=== PATIENT | male | born 1960 | race African-American/Black ===

== ENCOUNTER 2021-02-03 10:23 | Inpatient (IN) | payer OTHER ==
[2021-02-03 12:14] VITALS: BMI 25.7
[2021-02-03] MEDS ORDERED: LORazepam 1 MG TABLET PO PRN (14:43)
[2021-02-03] MEDS ORDERED: IBUPROFEN 400 MG TABLET (FP) PO PRN (14:43)
[2021-02-03] MEDS ORDERED: NICOTINE 10 MG CARTRIDGE (INHALER) IH PRN (14:43)
[2021-02-03] MEDS ORDERED: MAGNESIUM CITRATE 300 ML BOTTLE PO PRN (14:43)
[2021-02-03] MEDS ORDERED: ONDANSETRON *ODT* 4 MG TABLET SL PRN (14:43)
[2021-02-03] MEDS ORDERED: BISMUTH SUBSALICYLATE 524 MG/30 ML PO PRN (14:43)
[2021-02-03] MEDS ORDERED: MENTHOL/PHENOL 1 EACH UD MM PRN (14:43)
[2021-02-03] MEDS ORDERED: MAGNESIUM HYDROX 2400MG/30ML ORAL SUSPENSION 30 ML CUP PO PRN (14:43)
[2021-02-03] MEDS ORDERED: METHOCARBAMOL 500 MG TABLET PO PRN (14:43)
[2021-02-03] MEDS ORDERED: ACETAMINOPHEN 325 MG TABLET (FP) PO PRN ×2 (14:43)
[2021-02-03] MEDS ORDERED: MAG HYDROX/AL HYDROX/SIMETH 30 ML UNIT-DOSE CUP PO PRN (14:43)
[2021-02-03] MEDS: LORazepam 2 MG TABLET PO SCH ×2 (17:59→22:18)
[2021-02-03] MEDS: FAMOTIDINE 20 MG TABLET PO SCH (18:00)
[2021-02-03] MEDS: hydrOXYzine PAMOATE 25 MG CAPSULE (FP) PO SCH ×2 (18:01→22:19)
[2021-02-03] MEDS: PANTOPRAZOLE 40 MG TABLET PO SCH (18:01)
[2021-02-03] MEDS ORDERED: MELATONIN 5 MG TABLETS PO SCH (22:00)
[2021-02-03] MEDS: THIAMINE HCL 100 MG TABLET (FP) PO SCH (22:19)
[2021-02-04] MEDS: hydrOXYzine PAMOATE 25 MG CAPSULE (FP) PO SCH ×5 (05:26→22:17)
[2021-02-04] MEDS: LORazepam 2 MG TABLET PO SCH ×4 (05:26→22:17)
[2021-02-04 11:00] LABS: HEMATOCRIT 33.2 % (35.4-49); HEMOGLOBIN 11.1 GM/dL (11.7-16.9); MCHC 33.5 g/dl (32.0-35.9); MEAN CELL VOLUME 98.5 fl (80-96); MEAN PLT VOLUME 9.9 fl (7.5-11.1); PLATELET COUNT 194 10^3/uL (134-434); RBC 3.37 M/mm3 (4.00-5.60); RDW 24.6 % (11.9-15.9); WHITE BLOOD COUNT 4.2 K/mm3 (4.0-10.0)
[2021-02-04 11:05] LABS: ALBUMIN 3.8 g/dl (3.4-5.0); BLOOD UREA NITROGEN 13.8 mg/dL (7-18)
[2021-02-04 11:08] LABS: CREATININE 1.3 mg/dL (0.55-1.3)
[2021-02-04 11:10] LABS: BILIRUBIN,TOTAL 0.7 mg/dL (0.2-1); TOT PROT 8.8 g/dl (6.4-8.2)
[2021-02-04] MEDS: FAMOTIDINE 20 MG TABLET PO SCH (13:10)
[2021-02-04] MEDS: PANTOPRAZOLE 40 MG TABLET PO SCH (13:10)
[2021-02-04] MEDS: HYDROCHLOROTHIAZIDE 25 MG TABLET (FP) PO SCH (13:17)
[2021-02-04] MEDS: LISINOPRIL 20 MG TABLET PO SCH (13:17)
[2021-02-04] MEDS: THIAMINE HCL 100 MG TABLET (FP) PO SCH (22:17)
[2021-02-04] MEDS: MELATONIN 5 MG TABLETS PO SCH (22:17)
[2021-02-05] MEDS: hydrOXYzine PAMOATE 25 MG CAPSULE (FP) PO SCH ×5 (05:38→22:15)
[2021-02-05] MEDS: LORazepam 1 MG TABLET PO SCH ×4 (05:38→22:15)
[2021-02-05 10:15] LABS: INR 0.94 (0.83-1.09); PROTHROMBIN TIME (PATIENT) 11.5 SEC (9.7-13.0)
[2021-02-05 10:25] LABS: ALBUMIN 3.2 g/dl (3.4-5.0)
[2021-02-05 10:26] LABS: BLOOD UREA NITROGEN 14.2 mg/dL (7-18)
[2021-02-05 10:29] LABS: CREATININE 1.3 mg/dL (0.55-1.3)
[2021-02-05 10:30] LABS: BILIRUBIN,TOTAL 1.6 mg/dL (0.2-1); TOT PROT 7.6 g/dl (6.4-8.2)
[2021-02-05] MEDS: LISINOPRIL 20 MG TABLET PO SCH (10:34)
[2021-02-05] MEDS: PANTOPRAZOLE 40 MG TABLET PO SCH (10:34)
[2021-02-05] MEDS: HYDROCHLOROTHIAZIDE 25 MG TABLET (FP) PO SCH (10:34)
[2021-02-05] MEDS: FAMOTIDINE 20 MG TABLET PO SCH (10:35)
[2021-02-05] MEDS: MELATONIN 5 MG TABLETS PO SCH (22:15)
[2021-02-05] MEDS: THIAMINE HCL 100 MG TABLET (FP) PO SCH (22:15)
[2021-02-06] MEDS ORDERED: LORazepam 0.5 MG TABLET PO PRN
[2021-02-06] MEDS: LORazepam 0.5 MG TABLET PO SCH ×4 (05:38→22:45)
[2021-02-06] MEDS: hydrOXYzine PAMOATE 25 MG CAPSULE (FP) PO SCH ×5 (05:38→22:45)
[2021-02-06] MEDS: HYDROCHLOROTHIAZIDE 25 MG TABLET (FP) PO SCH (10:40)
[2021-02-06] MEDS: PANTOPRAZOLE 40 MG TABLET PO SCH (10:40)
[2021-02-06] MEDS: FAMOTIDINE 20 MG TABLET PO SCH (10:43)
[2021-02-06] MEDS: LISINOPRIL 20 MG TABLET PO SCH (11:38)
[2021-02-06 14:52] LABS: BLOOD UREA NITROGEN 16.3 mg/dL (7-18); CALCIUM 9.4 mg/dL (8.5-10.1)
[2021-02-06 14:56] LABS: CREATININE 1.2 mg/dL (0.55-1.3)
[2021-02-06] MEDS: MELATONIN 5 MG TABLETS PO SCH (22:45)
[2021-02-06] MEDS: THIAMINE HCL 100 MG TABLET (FP) PO SCH (22:45)
[2021-02-07] MEDS ORDERED: LORazepam 0.5 MG TABLET PO ONE (05:00)
[2021-02-07] MEDS: hydrOXYzine PAMOATE 25 MG CAPSULE (FP) PO SCH ×2 (05:37→12:16)
[2021-02-07 09:17] VITALS: BP 132/80; PULSE 77; TEMP 97
[2021-02-07] MEDS: FAMOTIDINE 20 MG TABLET PO SCH (12:15)
[2021-02-07] MEDS: HYDROCHLOROTHIAZIDE 25 MG TABLET (FP) PO SCH (12:15)
[2021-02-07] MEDS: PANTOPRAZOLE 40 MG TABLET PO SCH (12:16)
[2021-02-07] MEDS: LISINOPRIL 20 MG TABLET PO SCH (12:16)
== END 2021-02-07 09:33 | disposition home or self-care (01) | DRG 775 ==
LOC: YASAS 10:23 → Y3N 16:27
PROVIDERS: ADMIT Allergy & Immunology; ATTEND Allergy & Immunology
PROC: HZ2ZZZZ Detoxification Services for Substance Abuse Treatment (ICD-10-PCS; principal; 2021-02-03)
DX: F10.230 Alcohol dependence with withdrawal, uncomplicated (principal); F12.20 Cannabis dependence, uncomplicated; F17.210 Nicotine dependence, cigarettes, uncomplicated; D64.9 Anemia, unspecified; E87.1 Hypo-osmolality and hyponatremia; E80.6 Other disorders of bilirubin metabolism; I10 Essential (primary) hypertension; M17.11 Unilateral primary osteoarthritis, right knee; M10.9 Gout, unspecified; R74.01 Elevation of levels of liver transaminase levels; R74.8 Abnormal levels of other serum enzymes
CPT/HCPCS: 36415; 80048; 80053; 85027; 85610; 86780; C9803; Q0162; U0003; U0005